=== PATIENT | female | born 1970 | race Caucasian/White ===

== ENCOUNTER 2018-09-26 11:11 | Day surgery (SDC) | payer MEDICARE, MEDICAID ==
[2018-09-26 11:40] VITALS: BP 109/76
== END 2018-09-26 12:35 | disposition home or self-care (01) ==
LOC: GI LAB 11:11
PROVIDERS: ATTEND Surgery
DX: K64.9 Unspecified hemorrhoids (principal); Z53.8 Procedure and treatment not carried out for other reasons; M06.9 Rheumatoid arthritis, unspecified; M43.8X9 Other specified deforming dorsopathies, site unspecified

== ENCOUNTER 2025-06-18 10:45 | Outpatient (CLI) | payer MEDICARE, MEDICAID ==
--- NOTE | 2025-06-18 12:34 | RADIOLOGY REPORT ---
INDICATION: LIVER DISEASE, UNSPECIFIED TECHNIQUE: Multiple real-time sonographic images of the abdomen were obtained. COMPARISON: None FINDINGS: The liver is homogenous in echogenicity. The liver measures 15cm. No intrahepatic biliary ductal dilatation is noted. Gallbladder removed. The right kidney measures 8cm. No hydronephrosis. The pancreas is not well visualized due to obscuration from bowel gas. The visualized portions of the IVC and aorta are grossly unremarkable. IMPRESSION: Unable to visualized liver lesions on ultrasound. Please refer to MRI
== END 2025-06-18 23:59 | disposition home or self-care (01) ==
LOC: RAD 10:45
PROVIDERS: ATTEND General Practice
DX: K76.9 Liver disease, unspecified (principal); E27.9 Disorder of adrenal gland, unspecified
CPT/HCPCS: 76700